=== PATIENT | female | born 1970 | race African-American/Black ===

== ENCOUNTER 2024-06-03 09:41 | Emergency (ER) | payer OTHER ==
[~2024-06-03] VITALS: Ht 165.1 cm; Wt 70.8 kg
[2024-06-03 09:46] VITALS: O2SAT 100
[2024-06-03 10:11] LABS: BASOPHILS % 0.3 % (0.0-2.0); EOSINOPHILS % 1.4 % (0.0-5.0); HEMATOCRIT. 28.7 % (36.0-48.0); MEAN CORPUSCULAR HEMOGLOBIN 25.1 pg (28.0-32.0); MEAN CORPUSCULAR HGB CONC 31.3 g/dL (31.0-37.0); MEAN CORPUSCULAR VOLUME 80.2 fL (81.0-99.0); MEAN PLATELET VOLUME 7.9 fl (7.4-10.4); MONOCYTES % 7.8 % (2.0-8.0); NEUTROPHILS % 62.5 % (40.0-76.0); PLATELET 507 x1000/uL (130-400); RED BLOOD CELL COUNT 3.58 mill/uL (4.2-5.4); RED CELL DISTRIBUTION WIDTH 17.7 % (11.6-14.6); WHITE BLOOD COUNT 9.9 x1000/uL (4.5-11.0)
[2024-06-03 10:22] LABS: CHLORIDE 107 mEq/L (98-107); POTASSIUM 3.2 mEq/L (3.5-5.1); SODIUM 138 mEq/L (136-145)
[2024-06-03 10:23] LABS: CALCIUM 9.1 mg/dL (8.7-10.4); CARBON DIOXIDE 26 mEq/L (21-32)
[2024-06-03 10:28] LABS: CREATININE 0.7 mg/dL (0.6-1.0); GLUCOSE 83 mg/dL (70-105); UREA NITROGEN BLOOD 8 mg/dL (9-23)
[2024-06-03 10:33] LABS: HCG SCREEN NEGATIVE
[2024-06-03] MEDS ORDERED: IBUP-2029 MT (14:19)
[2024-06-03 14:45] VITALS: BP 162/79; PULSE 71; RESP 18; TEMP 98.7
== END 2024-06-03 14:58 | disposition home or self-care (01) ==
LOC: ER 09:41
DX: N93.9 Abnormal uterine and vaginal bleeding, unspecified (principal); J45.909 Unspecified asthma, uncomplicated; E05.90 Thyrotoxicosis, unspecified without thyrotoxic crisis or storm; Z88.0 Allergy status to penicillin
CPT/HCPCS: 36415; 76830; 76856; 80048; 81025; 84703; 85025; 86850; 86900; 99284